=== PATIENT | female | born 1945 | race Caucasian/White ===

== ENCOUNTER → 2017-01-16 | Outpatient (CLI) | payer MEDICARE, OTHER | LOC: COL.CARD 14:12 | DX: R07.89 Other chest pain (principal); R00.0 Tachycardia, unspecified; R06.00 Dyspnea, unspecified ==

== ENCOUNTER 2018-10-29 10:24 | Inpatient (IN) | payer MEDICARE, OTHER ==
[~2018-10-29] VITALS: Ht 172.7 cm; Wt 91.5 kg
[2018-12-02] VITALS (11 sets, daily range): BP systolic 98–139; BP diastolic 48–70; PULSE 56–87; TEMP 97–98.2
[2018-12-02] MEDS ORDERED: TENORMIN 2525 MG/TAB PO (08:38)
[2018-12-02] MEDS ORDERED: PROTONIX 40MG T40 MG PO (08:39)
[2018-12-02] MEDS ORDERED: LIPITOR 40MG TA40 MG PO (08:40)
[2018-12-02] MEDS ORDERED: LEVOXYL0.15 MG PO (08:40)
[2018-12-02] MEDS ORDERED: SYSTANE 0.4%-0.1 SOL OP (08:41)
[2018-12-02] MEDS ORDERED: MUCINEX 60600 MG/TA1 PO (08:41)
[2018-12-02] MEDS ORDERED: CLARITIN 1010 MG/TAB PO (08:42)
--- NOTE | 2018-12-02 08:47 | NUR ---
JONATHON met with the patient and the pt's daughter Isha to discuss a discharge plan. The pt lives alone in [place]. The pt has a cane and a walker and reports independence with ADLs. The pt's PCP is Dr. Sherley Louise and the pt receives her medication from [facility]. The pt reports no difficulties obtaining her medications. The pt does not have advanced directive in the EMR. But the pt provided a copy of her DPOA-HC and it appoints her daughters Viktoriya Delaney and Isha Ortega. Upon discharge the pt plans to return home with outpatient physical therapy. There are no additional needs at this time.
--- NOTE | 2018-12-02 15:29 | NUR ---
PT TO ROOM 328 BY BED WITH MISHEL REYEZ PACU @1448. PT IS DROWSEY BUT AROUSES TO VERBAL, LUNGS CLEAR, DRESSING TO LEFT KNEE CDI WITH AQUACEL OVER INCISION. BRACE INPLACE. SCDS AND TEDS BILATERALLY. IV TO PUMP PER ORDERS. FAMILY AT BEDSIDE.
--- NOTE | 2018-12-02 22:49 | NUR ---
Report received from DEREJE Fontaine at beginning of shift. Patient has requested and received PRN Oxycodone 10mg for pain to left knee. One tab attempted and was unsuccessful in pain relief, and another tablet was given. This was successful. Patient able to ambulate 10 feet with walker and gait belt with slow, steady gait. Ice applied to site after walk.
[2018-12-03 00:11] VITALS: BP 108/53; PULSE 74; TEMP 98.1
[2018-12-03 03:35] VITALS: BP 104/51; PULSE 73; TEMP 98
--- NOTE | 2018-12-03 05:05 | NUR ---
Patient has rested well throughout the night. Requests pain medication about every 4 hours. Pain managed this shift. Lassiter catheter draining well. Denies any further needs.
--- NOTE | 2018-12-03 06:40 | NUR ---
Report from Merna REYEZ.
--- NOTE | 2018-12-03 06:57 | NUR ---
Report given to DEREJE Fontaine.
[2018-12-03 07:10] LABS: HEMATOCRIT 37.3 % (37.0-47.0); HEMOGLOBIN 11.9 g/dl (12.5-16.0)
[2018-12-03 07:57] VITALS: BP 110/55; PULSE 83; TEMP 97.9
--- NOTE | 2018-12-03 09:18 | NUR ---
NIÑO CATHERTER DISCONTINUED 250 MLS CLEAR YELLOW URINE REMOVED FROM BAG PRIOR TO REMOVAL. PT TOLERATED WELL. PT AMBULATED 50 FT WITH THERAPY. RETURNED TO ROOM AND IS UP TO RECLINER AT THIS TIME.
--- NOTE | 2018-12-03 11:33 | NUR ---
Initial visit; Patient and her daughter thanked Car Carder for looking in on her and offering spiritual care.
[2018-12-03 11:35] VITALS: BP 99/47; PULSE 72; TEMP 97.9
[2018-12-03] MEDS ORDERED: KLONOPIN 0.5MG0.5 MG PO (11:51)
--- NOTE | 2018-12-03 12:57 | NUR ---
PT UP TO BR WITH SBAX1 VOIDED AND RETURNED TO RECLINER.
--- NOTE | 2018-12-03 13:30 | NUR ---
pt out to [facility] for therapy then returned to room with steady gait.
--- NOTE | 2018-12-03 15:45 | NUR ---
PT UP TO BR VOIDED AND THEN WALKED 100+ FEET WITH SBA X1. PT TOLERATED WELL.
--- NOTE | 2018-12-03 16:21 | NUR ---
PT UP TO BR.
[2018-12-03 16:25] VITALS: BP 99/48; PULSE 65; TEMP 98.7
--- NOTE | 2018-12-03 19:01 | NUR ---
Report to Merna REYEZ.
--- NOTE | 2018-12-03 19:16 | NUR ---
Report received from DEREJE Fontaine.
[2018-12-03 20:00] VITALS: BP 111/52; PULSE 66; TEMP 98.3
[2018-12-04] VITALS: BP 118/60; PULSE 70; TEMP 98.4
[2018-12-04 04:00] VITALS: BP 146/66; PULSE 76; TEMP 98.4
--- NOTE | 2018-12-04 04:17 | NUR ---
Patient has rested well throughout the night. Complains of 6/10 pain to left knee. States norco works better for her. Haugen (2 tab) administered. Ambulates to the bathroom with staff with steady gait. Will continue to monitor patient.
[2018-12-04 06:39] LABS: HEMOGLOBIN 10.9 g/dl (12.5-16.0)
--- NOTE | 2018-12-04 06:44 | NUR ---
Report given to DEREJE Fontaine.
[2018-12-04] MEDS ORDERED: XARELTO10 MG PO (06:46)
[2018-12-04] MEDS ORDERED: NORCO 325 MG-7.1 TAB PO (06:47)
[2018-12-04] MEDS ORDERED: SENOKOT S 50 MG1 TAB PO (06:48)
[2018-12-04 06:53] LABS: HEMATOCRIT 33.8 % (37.0-47.0)
[2018-12-04 07:14] VITALS: BP 110/66; PULSE 71; TEMP 98.3
[2018-12-04 12:10] VITALS: BP 125/72; PULSE 70; TEMP 98.1
--- NOTE | 2018-12-04 13:45 | NUR ---
reviewed discharge instructions with pt and family. Questions answered pt taken by wheel chair to front.
== END 2018-12-04 13:51 | disposition home or self-care (01) | DRG 470 ==
LOC: JCC 12-02 08:07
PROVIDERS: ADMIT Orthopaedic Surgery
PROC: 0SRD0J9 Replacement of Left Knee Joint with Synthetic Substitute, Cemented, Open Approach (ICD-10-PCS; principal; 2018-12-02 11:30)
DX: M17.12 Unilateral primary osteoarthritis, left knee (principal); G43.909 Migraine, unspecified, not intractable, without status migrainosus; E78.00 Pure hypercholesterolemia, unspecified; F41.9 Anxiety disorder, unspecified; J30.2 Other seasonal allergic rhinitis; K21.9 Gastro-esophageal reflux disease without esophagitis; G89.29 Other chronic pain; I10 Essential (primary) hypertension; Z87.891 Personal history of nicotine dependence
CPT/HCPCS: A4314; A9284; C1776; J0690; J1100; J1885; J2250; J2405; J2704; J3010; J7030; J7120

== ENCOUNTER → 2018-11-25 | Outpatient (CLI) | payer MEDICARE, OTHER | LOC: ZCOL.LAB 14:21 | DX: Z01.812 Encounter for preprocedural laboratory examination (principal); Z86.14 Personal history of Methicillin resistant Staphylococcus aureus infection ==